=== PATIENT | female | born 1995 | race Caucasian/White ===

== ENCOUNTER 2016-12-04 16:59 | Emergency (ER) | payer BC ==
[~2016-12-04] VITALS: Ht 162.6 cm; Wt 58.6 kg
[~2016-12-04 16:59] MED LIST: GENERESS FE 0.01 CTB PO; [UNRECOGNIZED DRUG - OTHER] PO
[2016-12-04 17:05] VITALS: TEMP 98.5
[2016-12-04] MEDS ORDERED: PHENERGAN 25 TA25 MG PO (19:09)
[2016-12-04 19:26] VITALS: BP 110/72; PULSE 74
== END 2016-12-04 19:33 | disposition home or self-care (01) ==
LOC: COL.ER 16:59
DX: O99.351 Diseases of the nervous system complicating pregnancy, first trimester (principal); O21.9 Vomiting of pregnancy, unspecified; R51 Headache; Z3A.13 13 weeks gestation of pregnancy
CPT/HCPCS: J2550; J7030